=== PATIENT | female | born 1985 | race Two or more races ===

== ENCOUNTER → 2024-04-23 | Outpatient (CLI) | payer OTHER, MEDICAID, SELFPAY ==
--- NOTE | 2024-04-23 10:30 | XR_ITS ---
Examination: Screening digital mammography, bilateral Computer aided detection 3-D breast Tomosynthesis, bilateral Date and time of exam: April 23, 2024 1017 hours No priors Indication: Screening Technique: Nonmagnified MLO, CC views of the breasts to been obtained, reconstructed from 3-D Tomosynthesis images. R2 computer aided detection program utilized for evaluation of suspicious masses and/or abnormal calcifications. 3-D Tomosynthesis images obtained. Findings: Scattered areas of fibroglandular density 6 mm nodule upper outer right breast Benign calcifications Impression: BI-RADS Category 0: Incomplete: Need additional imaging evaluation 6 mm nodule upper outer right breast, recommend follow-up spot tomographic views of this nodule as well as right breast sonography to complete the workup
== END | disposition home or self-care (01) ==
PROVIDERS: PCP Internal Medicine; Referring Provider Physician Assistant Medical; Visit Provider Physician Assistant Medical
DX: Z12.31 Encounter for screening mammogram for malignant neoplasm of breast (principal); N63.11 Unspecified lump in the right breast, upper outer quadrant
CPT/HCPCS: 77063; 77067

== ENCOUNTER → 2024-05-19 | Outpatient (CLI) | payer OTHER, MEDICAID, SELFPAY ==
--- NOTE | 2024-05-19 12:36 | XR_ITS ---
Examination: Breast ultrasound, unilateral, right complete Date and time of exam: May 19, 2024 1252 hours INDICATIONS: Mammogram April 23, 2024 6 mm nodule upper outer right breast Technique: Real-time campbell scale ultrasonographic imaging performed right breast including all 4 quadrants as well as nipple retroareolar and axillary region. Findings: No cystic or solid breast mass IMPRESSION: BI-RADS Category 1: Negative study
--- NOTE | 2024-05-19 12:39 | XR_ITS ---
Examination: Diagnostic digital mammography, unilateral, right Computer aided detection 3-D breast Tomosynthesis, unilateral Date and time of exam: May 09, 2024 1458 hours INDICATIONS: Mammogram April 23, 2024 6 mm nodule outer right breast CC view Technique: Nonmagnified MLO, CC views of the right breast have been obtained, reconstructed from 3-D Tomosynthesis images. R2 computer aided detection program utilized for evaluation of suspicious masses and/or abnormal calcifications. 3-D Tomosynthesis images obtained. Findings: Scattered areas of fibroglandular density Right axillary circumscribed lymph node Impression: BI-RADS category 2: Benign findings Return to yearly follow-up mammography
== END | disposition home or self-care (01) ==
LOC: CDIM 12:25
PROVIDERS: PCP Internal Medicine; Referring Provider Physician Assistant Medical; Visit Provider Physician Assistant Medical
DX: R92.321 Mammographic fibroglandular density, right breast (principal)
CPT/HCPCS: 76641; 77061; 77065; G0279

== ENCOUNTER 2024-06-24 23:13 | Emergency (ER) | payer OTHER, MEDICAID, SELFPAY ==
[2024-06-24 23:17] VITALS: PULSE 78; O2SAT 98
[2024-06-24 23:24] VITALS: BP 135/78; PULSE 78; RESP 18; TEMP 36.8; O2SAT 98
[2024-06-24 23:31] VITALS: PULSE 80; BMI 36.0
[2024-06-24 23:34] VITALS: BP 137/91; PULSE 79; RESP 20; O2SAT 98
[2024-06-25] VITALS (7 sets, daily range): BP systolic 110–130; BP diastolic 77–88; PULSE 71–88; RESP 17–20; O2SAT 97–98
--- NOTE | 2024-06-25 00:25 | XR_ITS ---
Examination: AP chest single view TECHNIQUE: AP portable upright chest single view Examination type: June 25, 2024 0049 hours INDICATIONS: Sudden chest pain today. FINDINGS: Reduced inspiratory effort Normal heart size No lobar pneumonia or pulmonary edema IMPRESSION: Poor inspiratory effort chest x-ray
--- NOTE | 2024-06-25 00:25 | EKG_ITS ---
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
--- NOTE | 2024-06-25 00:26 | PD.EDRME ---
Rapid Medical Screening Exam RME Arrival date/time: 06/24/24 23:13 Chief Complaint: Arrhythmia/Palpitations Time Seen by Provider: 06/25/24 00:23 Vital signs: Vital Signs Temperature 98.2 F 06/24/24 23:24 Pulse Rate 78 06/24/24 23:24 Respiratory Rate 18 06/24/24 23:24 Blood Pressure 135/78 H 06/24/24 23:24 Pulse Oximetry (%) 98 06/24/24 23:24 Oxygen Delivery Method Room Air 06/24/24 23:24 RME Narrative: 38-year-old female with no significant past medical history coming in with chest pain
--- NOTE | 2024-06-25 00:28 | PC.NURSE ---
Pt now reporting feeling SOB, describes it as feeling like she cannot catch her breath. Pt's breathing is regular, even and unlabored and O2 sats are WNL. Awaiting MD evaluation.
[2024-06-25 00:45] LABS: Basophils # (Auto) 0.1 Thou/mm3 (0.0-0.2); Basophils % (Auto) 1 % (0-2.5); Eosinophils # (Auto) 0.2 Thou/mm3 (0.0-0.5); Eosinophils % (Auto) 2 % (0-10); Hematocrit 38.8 % (36.0-46.0); Hemoglobin 13.6 g/dL (12.0-16.0); Immature Granulocytes % (Auto) 0 % (0-0); Immature Granulocytes Auto 0.02 Thou/mm3 (0.00-0.00); Lymphocytes % (Auto) 33 % (10-50); Mean Corpuscular HGB Conc 35.1 g/dl (31.0-37.0); Mean Corpuscular Hemoglobin 30.2 pg (25.0-35.0); Mean Corpuscular Volume 86 fL (80-100); Monocytes # (Auto) 0.5 Thou/mm3 (0.0-0.8); Monocytes % (Auto) 5 % (0-12); Neutrophils # (Auto) 5.3 Thou/mm3 (1.8-7.7); Neutrophils % (Auto) 59 % (37-80); Nucleated Red Blood Cell % 0 /100 WBC (0); Platelet Count 289 Thou/mm3 (140-440); RDW Standard Deviation 39.8 fL (36.4-46.3); White Blood Count 9.1 Thou/mm3 (3.6-11.0)
--- NOTE | 2024-06-25 00:50 | PC.LAC ---
XRAY at the bedside at this time for exam.
[2024-06-25 01:00] LABS: Partial Thromboplastin Time 24.8 Seconds (22.0-36.0); Prothrombin Time 10.8 Seconds (9.0-12.2)
[2024-06-25 01:01] LABS: B-Type Natriuretic Peptide < 20 pg/mL (0-100)
[2024-06-25 01:04] LABS: Alanine Aminotransferase 39 U/L (10-49); Albumin, Serum 4.5 gm/dL (3.5-5.0); Albumin/Globulin Ratio 1.7 (1.2-2.2); Alkaline Phosphatase 93 U/L (46-116); Anion Gap 10 (7-16); Aspartate Amino Transferase 29 U/L (0-34); BUN/Creatinine Ratio 15 Ratio (12-20); Bilirubin,Total 0.2 mg/dL (0.3-1.2); Blood Urea Nitrogen 9 mg/dL (9-23); Calcium 8.5 mg/dL (8.3-10.6); Calcium (Corrected) 8.5 mg/dL (8.5-10.1); Carbon Dioxide 18.6 mMol/L (20.0-31.0); Chloride 111 mMol/L (98-107); Creatinine (Component) 0.6 mg/dL (0.6-1.3); Estimated Creatinine Clearance 129.5 mL/min (>60); Globulin 2.6 gm/dL (2.3-3.5); Glucose 127 mg/dL (74-106); Osmolality,Calculated 280 (275-295); Potassium 3.7 mMol/L (3.4-5.1); Sodium 140 mMol/L (136-145); Total Protein 7.1 gm/dL (5.7-8.2); Troponin I < 0.002 ng/mL (0.0-0.045); eGFR > 60 See Note
--- NOTE | 2024-06-25 01:16 | PD.EDARRY ---
ED Arrhythmia Palp. RME/HPI General Chief Complaint: Arrhythmia/Palpitations Stated Complaint: TACHYCARDIA Time Seen by Provider: 06/25/24 00:23 Arrival date/time: 06/24/24 23:13 Limitations: no limitations RME / HPI RME / HPI narrative: 38-year-old female with no significant past medical history coming in with chest pain --------- Dr. Pina's Main ED Evaluation: 38yo female with no significant past medical history presents to the ED for a chief complaint of chest pain. 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 She endorses associated lightheadedness. She denies any falls or injuries. She denies any shortness of breath or any other associated symptoms. Related Data Home Medications ?Medication ?Instructions ?Recorded ?Confirmed omeprazole 40 mg capsule,delayed 40 mg PO QDAY 02/21/19 01/17/22 release alprazolam 0.25 mg tablet 0.25 mg PO HS 02/11/20 01/17/22 galcanezumab-gnlm 120 mg/mL 120 mg subcut QMONTH 02/11/20 01/17/22 subcutaneous pen injector (Emgality Pen) topiramate 100 mg tablet 50 mg PO ONCE HS 02/11/20 01/17/22 acetaminophen 325 mg capsule 500 mg PO QID PRN Pain (Scale 01/16/22 01/17/22 (Tylenol) Score 4-6) biotin 2,500 mcg tablet 2,500 mcg PO QDAY 01/16/22 01/17/22 diclofenac potassium 50 mg tablet 50 tab PO DAILY PRN Inflammation 01/16/22 01/17/22 levocetirizine 5 mg tablet (Xyzal) 5 mg PO DAILY 01/16/22 01/17/22 melatonin 10 mg tablet 15 mg PO HS PRN Insomnia 01/16/22 01/17/22 kqkmujom-nkzweem-sqrn-iron fum 18 1 tab PO QDAY 01/16/22 01/17/22 mg-folic 600 mcg-vit K 80 mcg tablet (Multi For Her) onabotulinumtoxinA 200 unit See Rx Instructions .Route .COMPLEX 01/16/22 01/17/22 solution for injection (Botox) triamcinolone acetonide 0.5 % 0.5 applic topical BID PRN Rash 01/16/22 01/17/22 topical cream Allergies Allergy/AdvReac Type Severity Reaction Status Date / Time Sulfa (Sulfonamide Allergy Severe HIVES AND Verified 01/17/22 08:40 Antibiotics) SWELLING latex Allergy Intermediate Rash Verified 01/17/22 08:40 Review of Systems Review of Systems Systems Reviewed: All systems reviewed, normal except as documented Past Medical History Past Medical History NEUROLOGIC: Positive Neurological Disorders, Brain Tumor and Migraine; Negative Seizures CARDIAC: Positive Hypercholesterolemia; Negative Cardiac Disorders, Congestive Heart Failure, Edema, Cellulitis or Varicose Veins RESPIRATORY: Negative Chronic Obstructive Pulmonary Disease (COPD), Asthma, Pneumonia, Tuberculosis or Sleep Apnea GASTROINTESTINAL: Positive Gastrointestinal Disorders, Gall Bladder Disease, Gastroesophageal Reflux Disease and Obesity; Negative Hepatitis GENITOURINARY: Negative Genitourinary Disorders or Renal Disease REPRODUCTIVE: Positive Previous Pregnancies MUSCULOSKELETAL: Positive Musculoskeletal Disorders and Fibromyalgia ENDOCRINE: Positive Endocrine Disorders (pituitary tumor); Negative Diabetes Mellitus Type 1 or Diabetes Mellitus Type 2 HEMATOLOGIC: Positive Anemia; Negative Blood Disorders or Sickle Cell Disease PSYCHO/SOCIAL: Positive Depression and Anxiety OTHER HISTORY: Positive Chicken Pox; Negative Hospitalization, Autoimmune Disease, Shingles, Falls, Blood Transfusions, Blood Transfusion Reaction, Anesthesia Reactions, Chemotherapy, Radiation Therapy, MRSA, Measles, Mumps or Cancer Family History FAMILY HISTORY: Positive Family Psychiatric Problems, Family Respiratory Disorders, Family Cardiac Disorders, Family Gastrointestinal Problems, Family Cancer and Family Surgery; Negative Family Anesthesia Reaction Surgical History SURGICAL: Positive Section; Negative Pacemaker Social History SMOKING STATUS: Never smoker SUBSTANCE USE: does not use ED Exam General Limitations: Present no limitations General appearance: Present alert and in no apparent distress Head Head exam: Present atraumatic Eye Eye exam: Present normal appearance, PERRL and EOMI ENT ENT exam: Present normal exam, normal oropharynx and mucous membranes moist Neck Neck exam: Present normal inspection, full ROM and trachea midline Chest Chest inspection: Present normal inspection and symmetric chest wall rise Respiratory Respiratory exam: Present normal lung sounds bilaterally Cardiovascular Cardiovascular exam: Present regular rate, normal rhythm and normal heart sounds Abdominal Exam Abdominal exam: Present soft and normal bowel sounds Extremities Exam Extremities exam: Present normal inspection and full ROM Back Exam Back exam: Present normal inspection and full ROM Neurological Exam Neurological exam: Present alert, oriented X3 and CN II-XII intact Psychiatric Psychiatric exam: Present normal affect and normal mood Skin Skin exam: Present warm, dry, intact and normal color Course Course Course Narrative: CXR is ordered for determining the etiology of chest pain. Quality Measures none Orders Category Date Time Status Acid Dipper STAT Care 06/25/24 00:25 Active Continuous Pulse Oximetry ONCE Care 06/25/24 00:25 Completed EKG (ED ONLY) *Do not use* NOW Care 06/25/24 00:25 Completed EKG (ED Only) Stat Exams 06/25/24 00:25 Draft XR chest 1V portable Stat Exams 06/25/24 00:25 Taken B-Type Natriuretic Peptide Stat Lab 06/25/24 00:28 Completed CBC Stat Lab 06/25/24 00:28 Completed Comprehensive Metabolic Panel Stat Lab 06/25/24 00:28 Completed HCG Qualitative,Urine Stat Lab 06/25/24 00:10 Received Partial Thromboplastin Time Stat Lab 06/25/24 00:28 Completed Prothrombin Time with INR Stat Lab 06/25/24 00:28 Completed Troponin I Stat Lab 06/25/24 00:28 Completed Vital Signs Vital signs: Vital Signs Temperature 98.2 F 06/24/24 23:24 Pulse Rate 78 06/24/24 23:24 Respiratory Rate 18 06/24/24 23:24 Blood Pressure 135/78 H 06/24/24 23:24 Pulse Oximetry (%) 98 06/24/24 23:24 Oxygen Delivery Method Room Air 06/24/24 23:24 Pulse ox is 98% on room air, which is normal according to my interpretation. Arrhythmia/Palpitations Patient data External records reviewed:: [facility] previous records (Per chart review, patient was seen here on 02/07/24 for a migraine.) Clinical information provided by:: patient Social determinants that could affect healthcare access:: none Patient has the following chronic illnesses:: HLD How is presenting disease/condition affected by chronic disease/condition?: no chronic disease Evaluation data The following diagnostics were reviewed and interpreted by me:: lab results, radiology exam(s) and EKG tracing(s) Lab and/or radiology exams considered but not ordered:: none Interpretation Summary: CBC is normal, PT and INR are normal, PTT is normal, CMP is normal, initial and repeat troponins are normal, BNP is normal, HCG is negative, according to my interpretation. CXR is rotated, poor inspiratory effort, but is negative for infiltrates, pleural effusions or CHF, according to my interpretation. EKG done at 0038, NSR, rate of 78, normal WI interval, nonspecific ST changes in V3, no ST elevations or depressions, QTc: 399, no previous EKG available for comparison, according to my interpretation. Medications / Prescriptions Medications or Prescriptions considered but not ordered:: none Medication administrations:: see above, if any Consultations Consultation(s) initiated? (list below): No Diagnosis Differential diagnosis arrhythmia/palpitations: other (NSTEMI, STEMI, anxiety) Most likely diagnosis given after review of the tests above:: see below Admission Indicated Admission indicated?: not indicated Admission Request Was there a request for admission?: No Disposition Plan Disposition Plan: Discharge Discharge Attestation Discharge Attestation: The patient and all family members were given an opportunity to ask questions and understood the discharge instructions. Discharge instructions specifically effects, indications for sooner follow up or return to the emergency department, and the expected course of current diagnosis. Patient condition: Stable Discharge Plan Plan Patient Disposition: HOME (Self Care) Patient condition on transfer: Stable Prescriptions/Referrals Prescriptions/Med Rec: No Action omeprazole 40 mg Capsule,Delayed Release(Dr/Ec) 40 mg PO QDAY alprazolam 0.25 mg Tablet 0.25 mg PO HS topiramate 100 mg Tablet 50 mg PO ONCE HS Emgality Pen 120 mg/mL Pen Injector 120 mg SUBCUT QMONTH triamcinolone acetonide 0.5 % cream 0.5 applic TOPICAL BID PRN (Reason: Rash) Patient Comments: APPLY TO AFFECTED AREA TWICE A DAY DIRECTED diclofenac potassium 50 mg tablet 50 tab PO DAILY PRN (Reason: Inflammation) Patient Comments: TAKE 1 TABLET BY MOUTH EVERY DAY NEEDED biotin 2,500 mcg Tablet 2,500 mcg PO QDAY acetaminophen [Tylenol] 325 mg Capsule 500 mg PO QID PRN (Reason: Pain (Scale Score 4-6)) levocetirizine [Xyzal] 5 mg Tablet 5 mg PO DAILY Botox 200 unit Recon Soln See Rx Instructions .ROUTE .COMPLEX Rx Instructions: 200 unit subcutaneously melatonin 10 mg Tablet 15 mg PO HS PRN (Reason: Insomnia) Multi For Her 18 mg iron-600 mcg-80 mcg Tablet 1 tab PO QDAY Referrals: Yossi Harmon MD [Primary Care Provider] - In 1 week Problem List Clinical Impression: Atypical chest pain Patient/Caregiver Discharge Instructions Education Materials: ED Pain, Acute, Uncertain Cause Additional Instructions: Return to the emergency department for any worsening symptoms, or any other concerns prior to your appointment.. Today your imaging and your lab test are reassuring. Please take Tylenol 650 mg and or Motrin 600 mg 3 times a day as needed for pain for the next 2 to 3 days. Please see your doctor the next 72 hours. Print Language: Slovenian Stand Alone Forms: [employer] Info., Patient Portal Info Letter
[2024-06-25 01:18] LABS: HCG Qualitative,Urine Negative
[2024-06-25 04:15] LABS: Troponin I < 0.002 ng/mL (0.0-0.045)
== END 2024-06-25 05:38 | disposition home or self-care (01) ==
PROVIDERS: Emergency Provider Emergency Medicine; PCP Internal Medicine
DX: R07.89 Other chest pain (principal); R00.2 Palpitations; R42 Dizziness and giddiness
CPT/HCPCS: 36415; 71045; 80053; 81025; 83880; 84484; 85025; 85610; 85730; 93005; 99283

== ENCOUNTER 2024-08-20 10:05 | Day surgery (SDC) | payer OTHER, MEDICAID, SELFPAY ==
[2024-08-19 13:38] VITALS: BMI 35.8
[2024-08-20] VITALS (14 sets, daily range): BP systolic 98–135; BP diastolic 69–86; PULSE 67–77; RESP 12–26; TEMP 36.2–36.9; O2SAT 95–99; BMI 34.7
[2024-08-20] MEDS: SODIUM CHLORIDE 0.9% 500 ML 500 ML 20 ML IV (12:10)
[2024-08-20] MEDS: DiphenhydrAMINE INJ 50 MG/ML VIAL 25 MG IV (12:12)
[2024-08-20] MEDS: fentaNYL CIT INJ 50 mCg/ML AMP 2ML (ASD USE ONLY) IV (12:31)
[2024-08-20] MEDS: MIDAZOLAM INJ 1 MG/ML VIAL 2 ML (ASD USE ONLY) 2 MG IV (12:31)
== END 2024-08-20 13:40 | disposition home or self-care (01) ==
PROVIDERS: PCP Internal Medicine; Referring Provider Specialist; Visit Provider Specialist
PROC: 0DBE8ZX Excision of Large Intestine, Via Natural or Artificial Opening Endoscopic, Diagnostic (ICD-10-PCS; CPT 45380; principal; 2024-08-20 10:45)
PROC: (CPT 43239; 2024-08-20 10:45)
DX: K29.51 Unspecified chronic gastritis with bleeding (principal); K20.91 Esophagitis, unspecified with bleeding; K64.9 Unspecified hemorrhoids; Z90.49 Acquired absence of other specified parts of digestive tract; Z88.2 Allergy status to sulfonamides; Z91.040 Latex allergy status
CPT/HCPCS: 43239; 45378; A4649; J1200; J2250; J3010; J7040

== ENCOUNTER 2024-08-27 06:00 | Emergency (ER) | payer OTHER, MEDICAID, SELFPAY ==
[2024-08-27 06:00] VITALS: BMI 34.7
[2024-08-27 06:07] VITALS: BP 161/82; PULSE 61; RESP 19; TEMP 36.5; O2SAT 98
--- NOTE | 2024-08-27 06:35 | PD.EDHA ---
ED Headache RME/HPI General Chief Complaint: Headache Stated Complaint: HEADACHE Time Seen by Provider: 08/27/24 06:12 Arrival date/time: 08/27/24 06:00 RME / HPI RME / HPI Narrative: DR. CASON MAIN ED EVALUATION: 38 year old female with past medical history significant for migraines, takes topiramate, nurtec, and botox injections with Dr. Gardner. Patient presents to the Emergency Department with complaint of a left sided temporal headache today. She states she took her nurtex without any relief today. Associated symptoms include photophobia. Related Data Home Medications ?Medication ?Instructions ?Recorded ?Confirmed omeprazole 40 mg capsule,delayed 40 mg PO QDAY 02/21/19 08/20/24 release alprazolam 0.25 mg tablet 0.25 mg PO HS 02/11/20 08/20/24 Held on 08/20/24. Instructions: Resume on 08/21/24. levocetirizine 5 mg tablet (Xyzal) 5 mg PO DAILY 01/16/22 08/20/24 melatonin 10 mg capsule 10 mg PO QDAY 08/20/24 08/20/24 Held on 08/20/24. Instructions: Resume on 08/21/24. Allergies Allergy/AdvReac Type Severity Reaction Status Date / Time Sulfa (Sulfonamide Allergy Severe HIVES AND Verified 08/20/24 10:57 Antibiotics) SWELLING latex Allergy Intermediate Rash Verified 08/20/24 10:57 Review of Systems Review of Systems Systems Reviewed: All systems reviewed, normal except as documented Past Medical History Past Medical History NEUROLOGIC: Positive Neurological Disorders, Brain Tumor and Migraine CARDIAC: Positive Hypercholesterolemia (resolved) GASTROINTESTINAL: Positive Gastrointestinal Disorders, Gall Bladder Disease, Gastroesophageal Reflux Disease (dyspepsia) and Obesity REPRODUCTIVE: Positive Previous Pregnancies MUSCULOSKELETAL: Positive Musculoskeletal Disorders and Fibromyalgia ENDOCRINE: Positive Endocrine Disorders HEMATOLOGIC: Positive Anemia PSYCHO/SOCIAL: Positive Depression and Anxiety OTHER HISTORY: Positive Chicken Pox Family History FAMILY HISTORY: Positive Family Psychiatric Problems, Family Respiratory Disorders, Family Cardiac Disorders, Family Gastrointestinal Problems, Family Cancer and Family Surgery Surgical History SURGICAL: Positive Section Social History SMOKING STATUS: Never smoker SUBSTANCE USE: does not use ALCOHOL: Never ED Exam Narrative Physical exam: GENERAL APPEARANCE: alert and oriented x 4, well-developed, well-nourished, no acute distress VITALS: All vitals were reviewed and the pulse ox is 98% on room air, which is normal according to my interpretation. HEENT: Normocephalic, atraumatic; pupils equal, round, reactive to light; EOMI; mucous membranes pink, moist; oropharynx clear NECK: Supple LUNGS: CTABL; no wheezes, no rales, no rhonchi HEART: Regular rate, regular rhythm; normal S1, S2; no murmurs ABDOMEN: non distended; normal BS; soft, no tenderness, no guarding, no rebound; no masses, no organomegaly, no hernia BACK: no CVA tenderness EXTREMITIES: atraumatic; no edema NEUROLOGIC: awake; alert and oriented x4; cranial nerves II-XII grossly intact; no focal sensory or motor deficits PSYCHIATRIC: appropriate mood and affect SKIN: warm, dry, normal color; no rashes Course Quality Measures none Orders Category Date Time Status DiphenhydrAMINE INJ [Benadryl Inj] Med 08/27/24 06:34 Discontinued 25 mg IM X1 ONE HYDROcodone*/APAP 5/325 [[place] 5/325] Med 08/27/24 08:03 Discontinued 1 tab PO X1 ONE Ketorolac Inj [Toradol Inj] Med 08/27/24 06:34 Discontinued 30 mg IM X1 ONE Metoclopramide [Reglan] Med 08/27/24 06:34 Discontinued 10 mg PO X1 ONE Vital Signs Vital signs: Vital Signs Temperature 97.7 F 08/27/24 06:07 Pulse Rate 61 08/27/24 06:07 Respiratory Rate 19 08/27/24 06:07 Blood Pressure 161/82 H 08/27/24 06:07 Pulse Oximetry (%) 98 08/27/24 06:07 Oxygen Delivery Method Room Air 08/27/24 06:07 Headache MDM Narrative MDM Narrative:: I, Enriqueta Smith am scribing for and in the presence of Dr. Cason. Patient data External records reviewed:: [facility] previous records (Reviewed last ED visit dated 06/25/24, discharged with the following: Atypical chest pain) Clinical information provided by:: patient Social determinants that could affect healthcare access:: none Patient has the following chronic illnesses:: Migraines, takes topiramate, nurtec, and botox injections with Dr. Gardner. How is presenting disease/condition affected by chronic disease/condition?: caused by Evaluation data The following diagnostics were reviewed and interpreted by me:: other (specify) (none) Lab and/or radiology exams considered but not ordered:: none Interpretation Summary: n/a Medications / Prescriptions Medications or Prescriptions considered but not ordered:: none Medication administrations:: Medication Administration History Discontinued Medications Hydrocodone Bitart/Acetaminophen (Hydrocodone/Apap 5/325 Tablet) 1 tab PO X1 ONE Stop: 08/27/24 08:04 Last Admin: 08/27/24 08:07 Dose: 1 tab Documented By: OG Diphenhydramine HCl (Diphenhydramine Inj 50 Mg/Ml Vial) 25 mg IM X1 ONE Stop: 08/27/24 06:35 Last Admin: 08/27/24 07:10 Dose: 25 mg Documented By: OG Comments: Ketorolac Tromethamine (Ketorolac Inj 30 Mg/Ml Vial) 30 mg IM X1 ONE Stop: 08/27/24 06:35 Last Admin: 08/27/24 07:10 Dose: 30 mg Documented By: OG Metoclopramide HCl (Metoclopramide 5 Mg Tablet) 10 mg PO X1 ONE Stop: 08/27/24 06:35 Last Admin: 08/27/24 07:09 Dose: 10 mg Documented By: OG see above Consultations Consultation(s) initiated? (list below): No Diagnosis Differential diagnosis headache: migraine, tension headache and headache Most likely diagnosis given after review of the tests above:: Migraine Admission Indicated Admission indicated?: not indicated Admission Request Was there a request for admission?: No Disposition Plan Disposition Plan: Discharge Discharge Attestation Discharge Attestation: The patient and all family members were given an opportunity to ask questions and understood the discharge instructions. Discharge instructions specifically effects, indications for sooner follow up or return to the emergency department, and the expected course of current diagnosis. Patient condition: Stable Discharge Plan Plan Patient Disposition: HOME (Self Care) Prescriptions/Referrals Prescriptions/Med Rec: No Action omeprazole 40 mg Capsule,Delayed Release(Dr/Ec) 40 mg PO QDAY alprazolam 0.25 mg Tablet 0.25 mg PO HS levocetirizine [Xyzal] 5 mg Tablet 5 mg PO DAILY melatonin 10 mg capsule 10 mg PO QDAY Referrals: Temporary Provider,ED [Physician] - In 1 week Problem List Clinical Impression: Migraine Patient/Caregiver Discharge Instructions Education Materials: ED Headache, Migraine, Classic Print Language: Nauruan Stand Alone Forms: [employer] Info., Patient Portal Info Letter
[2024-08-27] MEDS: METOCLOPRAMIDE 5 MG TABLET 10 MG PO (07:09)
[2024-08-27] MEDS: DiphenhydrAMINE INJ 50 MG/ML VIAL 25 MG IM (07:10)
[2024-08-27] MEDS: KETOROLAC INJ 30 MG/ML VIAL IM (07:10)
[2024-08-27 07:24] VITALS: BP 131/81; PULSE 57; RESP 13; TEMP 36.9; O2SAT 100
[2024-08-27] MEDS: HYDROcodone/APAP 5/325 TABLET 1 TAB PO (08:07)
== END 2024-08-27 10:03 | disposition home or self-care (01) ==
PROVIDERS: Emergency Provider Emergency Medicine; PCP Internal Medicine
DX: G43.909 Migraine, unspecified, not intractable, without status migrainosus (principal); Z91.040 Latex allergy status
CPT/HCPCS: 96372; 99283; J1200; J1885; A9270

== ENCOUNTER → 2024-09-11 | Outpatient (CLI) | payer OTHER, MEDICAID, SELFPAY ==
[2024-09-11 11:43] LABS: Glucose Estimated Average 105 mg/dL (80-131); Hemoglobin A1C 5.3 % Hgb (4.8-6.0)
[2024-09-11 11:51] LABS: Vitamin B12 507 pg/mL (211-911)
[2024-09-11 11:52] LABS: Basophils # (Auto) 0.1 Thou/mm3 (0.0-0.2); Basophils % (Auto) 1 % (0-2.5); Eosinophils # (Auto) 0.2 Thou/mm3 (0.0-0.5); Eosinophils % (Auto) 3 % (0-10); Hematocrit 43.2 % (36.0-46.0); Hemoglobin 14.4 g/dL (12.0-16.0); Immature Granulocytes % (Auto) 0 % (0-0); Immature Granulocytes Auto 0.02 Thou/mm3 (0.00-0.00); Lymphocytes # (Auto) 3.2 Thou/mm3 (1.0-4.8); Lymphocytes % (Auto) 37 % (10-50); Mean Corpuscular HGB Conc 33.3 g/dl (31.0-37.0); Mean Corpuscular Hemoglobin 29.8 pg (25.0-35.0); Mean Corpuscular Volume 89 fL (80-100); Monocytes # (Auto) 0.4 Thou/mm3 (0.0-0.8); Monocytes % (Auto) 5 % (0-12); Neutrophils # (Auto) 4.7 Thou/mm3 (1.8-7.7); Neutrophils % (Auto) 55 % (37-80); Nucleated Red Blood Cell % 0 /100 WBC (0); Platelet Count 376 Thou/mm3 (140-440); RDW Standard Deviation 42.1 fL (36.4-46.3); Red Blood Count 4.83 Miln/mm3 (4.00-5.20); White Blood Count 8.6 Thou/mm3 (3.6-11.0)
[2024-09-11 11:54] LABS: Alanine Aminotransferase 52 U/L (10-49); Albumin, Serum 4.7 gm/dL (3.5-5.0); Albumin/Globulin Ratio 1.8 (1.2-2.2); Alkaline Phosphatase 90 U/L (46-116); Anion Gap 9 (7-16); Aspartate Amino Transferase 40 U/L (0-34); BUN/Creatinine Ratio 10 Ratio (12-20); Bilirubin,Total 0.2 mg/dL (0.3-1.2); Blood Urea Nitrogen 8 mg/dL (9-23); Calcium 9.3 mg/dL (8.3-10.6); Calcium (Corrected) 9.3 mg/dL (8.5-10.1); Carbon Dioxide 22.1 mMol/L (20.0-31.0); Chloride 110 mMol/L (98-107); Cholesterol 192 mg/dL (132-200); Creatinine (Component) 0.8 mg/dL (0.6-1.3); Globulin 2.6 gm/dL (2.3-3.5); Glucose 94 mg/dL (74-106); HDL Cholesterol 48 mg/dL (40-60); LDL Cholesterol,Calculated 101 mg/dL (0-130); Osmolality,Calculated 279 (275-295); Sodium 141 mMol/L (136-145); Thyroid Stimulating Hormone 1.65 uIU/mL (0.55-4.78); Total Protein 7.3 gm/dL (5.7-8.2); Triglycerides 216 mg/dL (30-150); eGFR > 60 See Note
== END | disposition home or self-care (01) ==
PROVIDERS: PCP Internal Medicine; Referring Provider Psychiatry & Neurology Neurology; Visit Provider Psychiatry & Neurology Neurology
DX: R20.2 Paresthesia of skin (principal)
CPT/HCPCS: 36415; 80053; 80061; 82306; 82607; 83036; 84443; 85025

== ENCOUNTER → 2024-09-25 | Outpatient (CLI) | payer OTHER, MEDICAID, SELFPAY ==
[2024-09-25 10:46] LABS: Alanine Aminotransferase 63 U/L (10-49); Albumin, Serum 4.7 gm/dL (3.5-5.0); Alkaline Phosphatase 76 U/L (46-116); Aspartate Amino Transferase 45 U/L (0-34); Bilirubin,Direct < 0.1 mg/dL (0.0-0.3); Bilirubin,Total 0.4 mg/dL (0.3-1.2); Total Protein 7.2 gm/dL (5.7-8.2)
[2024-09-25 11:04] LABS: Ferritin 25 ng/mL (7.3-270.7); Iron 99 mcg/dL (50-170); Percent Iron Saturation 27 % (20-55); Total Iron Binding Capacity 360 mcg/dL (250-425); Unsaturated Iron Binding 261 (225-295)
[2024-09-25 15:26] LABS: AFP Non-Pregnant < 1.30 ng/mL (<8.10); Hepatitis A Antibody IgM Non Reactive (Non React); Hepatitis B Surface Antigen Non Reactive (Non React)
[2024-09-25 16:49] LABS: Hepatitis B Core Antibody IgM Non Reactive (Non React); Hepatitis C Antibody Non Reactive (Non React)
[2024-09-29 07:13] LABS: ACTH, Plasma* 15 pg/mL (6-50)
[2024-10-06 07:26] LABS: ANA Screen, IFA POSITIVE (NEGATIVE); Alpha-1-Antitrypsin* 123 mg/dL (83-199); Ceruloplasmin* 25 mg/dL (14-48); Mitochondrial Ab NEGATIVE (NEGATIVE)
== END | disposition home or self-care (01) ==
LOC: COPL 09:06
PROVIDERS: PCP Internal Medicine; Referring Provider Specialist; Visit Provider Specialist
DX: R94.5 Abnormal results of liver function studies (principal); R10.32 Left lower quadrant pain; R14.0 Abdominal distension (gaseous)
CPT/HCPCS: 36415; 80074; 80076; 82024; 82103; 82105; 82390; 82728; 83540; 83550; 85610; 86038; 86255

== ENCOUNTER → 2024-10-10 | Outpatient (CLI) | payer OTHER, MEDICAID, SELFPAY ==
--- NOTE | 2024-10-10 16:00 | XR_ITS ---
Examination: Abdomen sonogram, Limited Date and time of exam: October 10, 2024 1545 hours INDICATIONS: Right upper abdominal pain beginning 2 months ago, abnormal liver function tests on laboratory examination September 11, 2024 Technique: Real-time campbell scale transabdominal sonographic images of the upper abdomen obtained. Findings: Absent gallbladder Normal common bile duct 0.4 cm Pancreatic head 2.5 cm Liver 19.4 cm fatty infiltration Normal hepatopedal portal venous flow Patent IVC IMPRESSION: Normal common bile duct Moderate hepatomegaly fatty liver
== END | disposition home or self-care (01) ==
PROVIDERS: PCP Internal Medicine; Referring Provider Specialist; Visit Provider Specialist
DX: K76.0 Fatty (change of) liver, not elsewhere classified (principal)
CPT/HCPCS: 76705

== ENCOUNTER → 2024-10-31 | Outpatient (CLI) | payer OTHER, MEDICAID, SELFPAY ==
[2024-10-31 07:56] LABS: Misc Send Out* See Sep Rpt
[2024-10-31 15:32] LABS: RA Screen Negative (Negative)
[2024-11-06 23:33] LABS: Sjogren's antibody (SS-A) <1.0 NEG AI (<1.0 NEGATIVE); Sm Antibody <1.0 NEG AI (<1.0 NEGATIVE)
[2024-11-07 06:07] LABS: ANA Screen, IFA POSITIVE (NEGATIVE); Mitochondrial Ab NEGATIVE (NEGATIVE); Sjogren's Antibody (SS-B) <1.0 NEG AI (<1.0 NEGATIVE); Striated Muscle Ab NEGATIVE (NEGATIVE)
[2024-11-07 06:08] LABS: Actin Antibody (IgG)* <20 U; Complement Component C3* 170 mg/dL (83-193); Complement Component C4c* 23 mg/dL (15-57); Gastric Parietal Cell Ab* <20.0 U; Myocardial Ab, IF NEGATIVE (NEGATIVE); Scl-70 Antibody* <1.0 NEG AI (<1.0 NEGATIVE); Sm/RNP Antibody <1.0 NEG AI (<1.0 NEGATIVE); Thyroid Peroxidase Antibodies* 15 IU/mL (<9)
== END | disposition home or self-care (01) ==
PROVIDERS: PCP Internal Medicine; Referring Provider Specialist; Visit Provider Specialist
DX: R94.5 Abnormal results of liver function studies (principal); R10.13 Epigastric pain
CPT/HCPCS: 36415; 83516; 86015; 86038; 86160; 86235; 86255; 86376; 86430

== ENCOUNTER 2024-12-25 19:50 | Emergency (ER) | payer OTHER, MEDICAID, SELFPAY ==
[2024-12-25 19:51] VITALS: BMI 34.7
[2024-12-25 20:07] VITALS: BP 152/86; PULSE 86; RESP 18; TEMP 37.1; O2SAT 95
--- NOTE | 2024-12-25 20:11 | PD.EDHA ---
ED Headache RME/HPI General Chief Complaint: Headache Stated Complaint: HEADACHE X 5DAYS Time Seen by Provider: 12/25/24 20:19 Arrival date/time: 12/25/24 19:50 RME / HPI RME / HPI Narrative: This section includes all my notes and documentations, including HPI, PE, and ED course. David Sanders MD HPI: 39 y/o female with Hx of migraine headaches and brain tumor presents with 5 days of headache, nausea, and numbness and tingling to the tongue. Denies fever. No speech or visual impairment. No loss of power in the arms or legs. No other complaints. ROS: All negative except as documented in HPI. Physical Exam: General: Alert and oriented. Does not appear to be in severe pain. Eyes: Conjunctivae and lids clear. EOMI. PERRL. ENT: No nasal congestion. Pharynx normal. Tympanic membrane normal bilaterally. Neck: Supple. No carotid bruit. Heart: RRR. Lungs: No respiratory distress. Good air movement. No rhonchi, wheezing, rales. Abdomen: Soft and nontender. Skin: Warm and dry. Neuro: Alert and oriented X 3. Cranial Nerves II-XII grossly intact. No peripheral motor deficits. I reviewed all diagnostic test results: My review of the Head/Brain CT report is: NAD. At this point, diagnoses include: Migraine headache. Treatment here included: Zofran ODT 4 mg and two Tylenol #3 (no improvement noted). Patient requested her usual GI cocktail. She was given Toradol 60 mg IM and Benadryl 50 mg IM and oral Reglan 10 mg. She felt much better. Recommended supportive care. Based on my best medical judgment, made decision no further evaluation or treatment indicated at this time. Patient understands and agrees to the discharge instructions customized and printed, see below. Discharge Instructions from Dr. Sanders: --After evaluation, your symptoms are due to migraine headache.? Fortunately, there is no life-threatening condition.? Such as stroke or brain tumor. --When you get home, try to get some rest in the dark.? This can be the best treatment for migraine headache. --Try to eat regular nutritious meals, maintain good hydration, decrease stress, and get regular physical exercise.? Increase oral fluid and maintain clear urine.? If dark or yellow, increase oral fluid. --Take Zofran for nausea.? With migraines, controlling your nausea as soon as possible can help. --Take Imitrex as needed.? This works better if you take it at the onset of a migraine headache. --See a private doctor of your choice on 12/26/2024 for recheck and further care, including second opinion. Ask to consider a referral to see a neurologist and MRI brain imaging. Ask to review all test results and official radiology reports, to make sure you receive all necessary follow-ups and monitoring. --Seek immediate medical care with worsening or with any concerns.? David Sanders MD Related Data Home Medications ?Medication ?Instructions ?Recorded ?Confirmed omeprazole 40 mg capsule,delayed 40 mg PO QDAY 02/21/19 08/20/24 release alprazolam 0.25 mg tablet 0.25 mg PO HS 02/11/20 08/20/24 Held on 08/20/24. Instructions: Resume on 08/21/24. levocetirizine 5 mg tablet (Xyzal) 5 mg PO DAILY 01/16/22 08/20/24 melatonin 10 mg capsule 10 mg PO QDAY 08/20/24 08/20/24 Held on 08/20/24. Instructions: Resume on 08/21/24. Previous Rx's ?Medication ?Instructions ?Recorded ondansetron 4 mg disintegrating 4 mg PO TID PRN nausea and 12/25/24 tablet vomiting 30 days #10 tabs sumatriptan succinate 25 mg tablet 25 mg PO Q2H PRN migraine headache 12/25/24 (Imitrex) #10 tabs Allergies Allergy/AdvReac Type Severity Reaction Status Date / Time Sulfa (Sulfonamide Allergy Severe HIVES AND Verified 08/20/24 10:57 Antibiotics) SWELLING latex Allergy Intermediate Rash Verified 08/20/24 10:57 Review of Systems Review of Systems Systems Reviewed: All systems reviewed, normal except as documented Past Medical History Past Medical History NEUROLOGIC: Positive Neurological Disorders, Brain Tumor and Migraine CARDIAC: Positive Hypercholesterolemia GASTROINTESTINAL: Positive Gastrointestinal Disorders (gastritis, esophigitis), Gall Bladder Disease, Gastroesophageal Reflux Disease and Obesity REPRODUCTIVE: Positive Previous Pregnancies MUSCULOSKELETAL: Positive Musculoskeletal Disorders and Fibromyalgia ENDOCRINE: Positive Endocrine Disorders HEMATOLOGIC: Positive Anemia PSYCHO/SOCIAL: Positive Depression and Anxiety Family History FAMILY HISTORY: Positive Family Psychiatric Problems, Family Respiratory Disorders, Family Cardiac Disorders, Family Gastrointestinal Problems, Family Cancer and Family Surgery Surgical History SURGICAL: Positive Section ED Exam Narrative Physical exam: Refer to [facility] Course Quality Measures none Orders Category Date Time Status CT head/brain wo con Stat Exams 12/25/24 20:12 Completed ACETAMINOPHEN w/COD 300-30 [Tylenol w/Cod #3] Med 12/25/24 20:11 Discontinued 2 tab PO X1 ONE DiphenhydrAMINE INJ [Benadryl Inj] Med 12/25/24 21:37 Discontinued 50 mg IM X1 STA Ketorolac Inj [Toradol Inj] Med 12/25/24 21:37 Discontinued 60 mg IM X1 ONE Metoclopramide [Reglan] Med 12/25/24 21:37 Discontinued 10 mg PO X1 ONE Ondansetron Odt [Zofran Odt] Med 12/25/24 20:11 Discontinued 4 mg PO X1 ONE Vital Signs Vital signs: Vital Signs Temperature 98.8 F 12/25/24 20:07 Pulse Rate 86 12/25/24 20:07 Respiratory Rate 18 12/25/24 20:07 Blood Pressure 152/86 H 12/25/24 20:07 Pulse Oximetry (%) 95 12/25/24 20:07 Oxygen Delivery Method Room Air 12/25/24 20:07 Headache MDM Narrative MDM Narrative:: Scribe Attestation: Mally Ramsey, am scribing for and in the presence of Dr. Sanders. Provider Notation: Although this document has been carefully reviewed, there may still be some phonetic and other typographical errors.? These errors are purely grammatical due to imperfections in the software program and should not be construed in any way to? compromise the substance of the patient's medical care during this visit. 39 y/o female with Hx of migraine headaches and brain cancer presents with 5 days of headache, nausea, and numbness and tingling to the tongue. Denies fever. No other complaints. Patient data External records reviewed:: [facility] previous records (Reviewed prior ED records from 06/25/24. Patient was seen for Atypical chest pain.) Clinical information provided by:: patient Social determinants that could affect healthcare access:: none Patient has the following chronic illnesses:: Brain Tumor, Migraine, Hypercholesterolemia, Gastritis, Esophigitis), Gall Bladder Disease, Gastroesophageal Reflux Disease, Obesity, Fibromyalgia, Anemia, Depression, Anxiety How is presenting disease/condition affected by chronic disease/condition?: exacerbated by Evaluation data The following diagnostics were reviewed and interpreted by me:: radiology exam(s) Lab and/or radiology exams considered but not ordered:: None Interpretation Summary: I reviewed all diagnostic test results: My review of the Head/Brain CT report is: NAD. Advise clinical correlation and follow up accordingly. Medications / Prescriptions Medications or Prescriptions considered but not ordered:: None Medication administrations:: Medication Administration History Discontinued Medications Acetaminophen/Codeine Phosphate (Acetaminophen W/Cod 300-30 Tablet) 2 tab PO X1 ONE Stop: 12/25/24 20:12 Last Admin: 12/25/24 20:30 Dose: 2 tab Documented By: DAYRON Diphenhydramine HCl (Diphenhydramine Inj 50 Mg/Ml Vial) 50 mg IM X1 STA Stop: 12/25/24 21:38 Last Admin: 12/25/24 21:52 Dose: 50 mg Documented By: EE Ketorolac Tromethamine (Ketorolac Inj 60 Mg/2 Ml Vial) 60 mg IM X1 ONE Stop: 12/25/24 21:38 Last Admin: 12/25/24 21:52 Dose: 60 mg Documented By: DAYRON Metoclopramide HCl (Metoclopramide 5 Mg Tablet) 10 mg PO X1 ONE Stop: 12/25/24 21:38 Last Admin: 12/25/24 21:52 Dose: 10 mg Documented By: DAYRON Ondansetron HCl (Ondansetron Odt 4 Mg Tabrap) 4 mg PO X1 ONE; Protocol Stop: 12/25/24 20:12 Last Admin: 12/25/24 20:31 Dose: 4 mg Documented By: DAYRON Treatment here included: Zofran ODT 4 mg and two Tylenol #3 (no improvement noted). Patient requested her usual GI cocktail. She was given Toradol 60 mg IM and Benadryl 50 mg IM and oral Reglan 10 mg. She felt much better. Consultations Consultation(s) initiated? (list below): No Diagnosis Differential diagnosis headache: migraine, tension headache, subarachnoid hemorrhage, headache, meningitis, sinusitis and postconcussion syndrome Most likely diagnosis given after review of the tests above:: Migraine headache Admission Indicated Admission indicated?: not indicated Explain why admission is indicated or not indicated:: With significant improvement and no condition needing emergent intervention, there was no indication for admission. Admission Request Was there a request for admission?: No Disposition Plan Disposition Plan: Discharge Discharge Attestation Discharge Attestation: The patient and all family members were given an opportunity to ask questions and understood the discharge instructions. Discharge instructions specifically effects, indications for sooner follow up or return to the emergency department, and the expected course of current diagnosis. Patient condition: Stable Discharge Plan Plan Patient Disposition: HOME (Self Care) Prescriptions/Referrals Prescriptions/Med Rec: New sumatriptan succinate [Imitrex] 25 mg tablet 25 mg PO Q2H PRN (Reason: migraine headache) Qty: 10 0RF Rx Instructions: do not exceed 8 doses per 24 hrs ondansetron 4 mg tablet,disintegrating 4 mg PO TID PRN (Reason: nausea and vomiting) 30 Days Qty: 10 0RF No Action omeprazole 40 mg Capsule,Delayed Release(Dr/Ec) 40 mg PO QDAY alprazolam 0.25 mg Tablet 0.25 mg PO HS levocetirizine [Xyzal] 5 mg Tablet 5 mg PO DAILY melatonin 10 mg capsule 10 mg PO QDAY Referrals: Temporary Provider,ED [Physician] - In 1 week Problem List Clinical Impression: Migraine headache Patient/Caregiver Discharge Instructions Discharge Activity: activity as tolerated Education Materials: ED Headache, Migraine, Classic Additional Instructions: Discharge Instructions from Dr. Sanders: --After evaluation, your symptoms are due to migraine headache.? Fortunately, there is no life-threatening condition.? Such as stroke or brain tumor. --When you get home, try to get some rest in the dark.? This can be the best treatment for migraine headache. --Try to eat regular nutritious meals, maintain good hydration, decrease stress, and get regular physical exercise.? Increase oral fluid and maintain clear urine.? If dark or yellow, increase oral fluid. --Take Zofran for nausea.? With migraines, controlling your nausea as soon as possible can help. --Take Imitrex as needed.? This works better if you take it at the onset of a migraine headache. --See a private doctor of your choice on 12/26/2024 for recheck and further care, including second opinion. Ask to consider a referral to see a neurologist and MRI brain imaging. Ask to review all test results and official radiology reports, to make sure you receive all necessary follow-ups and monitoring. --Seek immediate medical care with worsening or with any concerns.? Print Language: Romansh Stand Alone Forms: [employer] Info., Patient Portal Info Letter
--- NOTE | 2024-12-25 20:12 | XR_ITS ---
Examination: CT brain head without contrast. 2-D sagittal coronal reconstructions Date and time of exam:December 25, 2024, 2035 hours Comparison June 27, 2017 INDICATIONS: Severe headache today CTDI: vol (mGy):44.2 DLP: (mGycm):962 Technique: Multiple CT axial sections of the brain have been obtained, 5 mm slice thickness. Contrast has not been administered. 2-D sagittal, coronal reconstructions have been obtained Low dose protocols were performed. One or more of the following dose reduction techniques were used; automated exposure control, adjustment of the mA and/or KV according to patient size, use of iterative reconstruction technique. Findings: No significant ventricular enlargement. Intra-axial or extra-axial hemorrhage density is not seen. No mass effect or midline shift Basal cisterns are not remarkable. Fourth ventricle is midline. Cranial vault intact. Impression: Negative for acute hemorrhage, mass effect or midline shift Advise clinical correlation and follow up accordingly
[2024-12-25] MEDS: ACETAMINOPHEN w/COD 300-30 TABLET 2 TAB PO (20:30)
[2024-12-25] MEDS: ONDANSETRON ODT 4 MG TABRAP PO (20:31)
[2024-12-25] MEDS: METOCLOPRAMIDE 5 MG TABLET 10 MG PO (21:52)
[2024-12-25] MEDS: KETOROLAC INJ 60 MG/2 ML VIAL IM (21:52)
== END 2024-12-25 21:55 | disposition home or self-care (01) ==
PROVIDERS: Emergency Provider Emergency Medicine
DX: G43.909 Migraine, unspecified, not intractable, without status migrainosus (principal)
CPT/HCPCS: 70450; 96372; 99283; J1200; J1885; Q0162; A9270

== ENCOUNTER → 2025-01-09 | Outpatient (CLI) | payer OTHER, MEDICAID, SELFPAY ==
--- NOTE | 2025-01-09 09:25 | XR_ITS ---
Examination: Shoulder,left, 3 views Technique: Shoulder AP internal rotation, AP external rotation, Y view shoulder, 3 views Exam date and time :January 09, 2025 0929 hours INDICATIONS: Left shoulder pain beginning 6 days ago FINDINGS: No shoulder fracture or dislocation. Mild narrowing glenohumeral joint No foreign body IMPRESSION: Mild narrowing glenohumeral joint
== END | disposition home or self-care (01) ==
LOC: CDIM 09:14
PROVIDERS: PCP Internal Medicine; Referring Provider Internal Medicine; Visit Provider Internal Medicine
DX: M25.812 Other specified joint disorders, left shoulder (principal)
CPT/HCPCS: 73030